=== PATIENT | female | born 1975 | race American Indian/Alaskan Native ===

== ENCOUNTER 2019-08-17 05:49 | Day surgery (SDC) | payer BC ==
[2019-08-17] MEDS ORDERED: GABAPENTIN 300 MG CAP PO NR (06:00)
[2019-08-17] MEDS ORDERED: ceFAZolin/Water 2 GM/20 ML 2 GM/20 ML SYRINGE IV NR (06:00)
[2019-08-17] MEDS ORDERED: LACTATED RINGERS 1,000 ML IV SCH (06:00)
[2019-08-17] MEDS ORDERED: MIDAZOLAM 2 MG/2 ML INJ IV NR (06:00)
[2019-08-17] MEDS ORDERED: SCOPOLAMINE TRANSDERMAL PATCH 72 HR TD NR (06:00)
[2019-08-17] MEDS ORDERED: MAGNESIUM OXIDE 400 MG TAB PO SCH (06:00)
[2019-08-17] MEDS ORDERED: CELECOXIB 200 MG CAP PO NR (06:00)
[2019-08-17] MEDS ORDERED: ONDANSETRON 4 MG/2 ML INJ IV PRN (06:59)
--- NOTE | 2019-08-17 07:02 | Anesthesia Consultation ---
Anesthesia Consult and Med Hx Date of service: 08/17/19 - Airway Anesthetic Teeth Evaluation: Good ROM Head & Neck: Adequate Mental/Hyoid Distance: Adequate Mallampati Class: Class I Intubation Access Assessment: Good - Pulmonary Exam CTA: Yes - Cardiac Exam Cardiac Exam: RRR - Pre-Operative Health Status ASA Pre-Surgery Classification: ASA2 Proposed Anesthetic Plan: General - Pulmonary Hx Smoking: No Hx Respiratory Symptoms: No Hx Sleep Apnea: No - Cardiovascular System Hx Hypertension: Yes Hx Heart Attack/AMI: No Hx Percutaneous Transluminal Coronary Angioplasty (PTCA): No - Central Nervous System CVA: No - Gastrointestinal Hx Gastroesophageal Reflux Disease: No - Endocrine Hx Renal Disease: No Hx Liver Disease: No Hx Insulin Dependent Diabetes: No Hx Non-Insulin Dependent Diabetes: No Hx Thyroid Disease: No - Other Systems Hx Alcohol Use: Yes (SOCIAL WINE) Hx Substance Use: No Hx Obesity: No - Additional Comments Anesthesia Medical History Comments: No hx anesthetic complications.
--- NOTE | 2019-08-17 07:03 | Anesthesia Day of Surgery ---
Anesthesia Day of Surgery - Day of Surgery Patient Examined: Yes Patient H&P Reviewed: Yes Patient is NPO: Yes
[2019-08-17] MEDS ORDERED: LIDOCAINE 1%/EPINEPHRINE 1:100,000 VIAL (20 ML) INFILTRATI ONE ×2 (07:28→08:43)
[2019-08-17] MEDS ORDERED: ONDANSETRON 4 MG/2 ML INJ ONE (07:33)
[2019-08-17] MEDS ORDERED: LIDOCAINE MPF (2%) 20 MG/1 ML VIAL 5 ML ONE (07:33)
[2019-08-17] MEDS ORDERED: dexAMETHasone 20 MG/5 ML VIAL ONE (07:33)
[2019-08-17] MEDS ORDERED: ROCURONIUM 50 MG/5 ML INJ IV ONE (07:33)
[2019-08-17] MEDS ORDERED: HYDROmorphone 1 MG/1 ML INJ ONE (07:34)
[2019-08-17] MEDS ORDERED: propofoL 200 MG/20 ML VIAL IV ONE (07:34)
[2019-08-17] MEDS ORDERED: EPINEPHrine 1 MG/10 ML SYRINGE ONE (07:35)
[2019-08-17] MEDS ORDERED: LIDOCAINE (1%) 10 MG/1 ML VIAL 20 ML MDV ONE (07:36)
[2019-08-17] MEDS ORDERED: SODIUM CHLORIDE 0.9% 1000 ML 1,000 ML ONE (07:38)
[2019-08-17] MEDS ORDERED: EPINEPHrine/PF 1 MG/1 ML INJ ONE (07:43)
[2019-08-17] MEDS ORDERED: SODIUM CHLORIDE 0.9% 1000 ML IV SOLN IJ ONE (08:39)
[2019-08-17] MEDS ORDERED: LIDOCAINE (1%) 10 MG/1 ML VIAL 20 ML MDV INFILTRATI ONE (08:42)
[2019-08-17] MEDS ORDERED: EPINEPHrine/PF 1 MG/1 ML INJ IV ONE (08:44)
[2019-08-17] MEDS ORDERED: LACTATED RINGERS 1,000 ML ONE ×2 (10:01→11:16)
[2019-08-17] MEDS ORDERED: ePHEDrine SULFATE 50 MG/1 ML INJ ONE (10:13)
[2019-08-17] MEDS: HYDROmorphone 1 MG/1 ML INJ IV PRN ×4 (12:05→13:06)
--- NOTE | 2019-08-17 12:07 | Operative Report ---
Operative Report Operative Report: Preoperative Diagnosis: Symptomatic bilateral macromastia Post Operative Diagnosis: Same Procedure: Bilateral breast reduction Surgeon: Dr. Rocío Pulliam Briar Wood Sorter: MARGA Chicas Anesthesia: General Specimens: Right and left breast tissue, excised EBL: 50cc Indications: This patient is a 43 year old AAF who presented with musculoskeletal complaints due to her large breasts. She was approved for breast reduction to alleviate her symptoms. The benefits and risks of surgery were discussed in detail with the patient who expressed her understanding. Informed consent was obtained. Procedure: After review of pertinent history and physical exam findings the patient was marked in preop holding and brought into the operating room and placed supine on the OR table. After induction of adequate general anesthesia the patient's chest was prepped and draped in the usual sterile surgical fa shion. To begin, odom were refreshed and measurements double checked and we reduced the right breast as follows: A 9cm inferior pedicle was outlined and de-epithelialized save the nipple and areola complex, which was measured out using a 4.5cm diameter and left completely attached to the inferior pedicle. After this, following a Ortega pattern, skin incisions were made to elevate breast flaps superiorly and excise excess tissue on the medial and lateral aspect of the pedicle. Hemostasis was maintained with electrocautery. Saline solution was then used to irrigate the breast tissue and, satisfied with hemostasis and volume, we began to a 3-layered closure using 2-0 Monocryl and 3-0 Monoderm sutures. The same procedure was performed on the left side, with tissue re- arrangement and excision based on an inferior pedicle being performed to preserve the nipple areolar complex and as much breast tissue as possible for symmetry. Tissue excised: 4600mg right breast; 4400g on the left. Once all incisions were closed, they were sealed with Dermabond and dressed with Telfa and tegaderm dressings. This was followed by placement of a surgical bra. The patient was then awakened from general anesthesia and transferred to PACU in stable condition. There were no complications. All sponge needle and instrument counts were correct at the end of the case.
[2019-08-17 13:19] VITALS: BP 123/74
--- NOTE | 2019-08-17 14:37 | Post Anesthesia Evaluation ---
- Post Anesthesia Evaluation Patient Participated: Yes Airway Patent: Yes Stable Respiratory Function: Yes Nausea/Vomiting: No Temp > 96.8F: Yes Pain Manageable: Yes Adequeate Hydration: Yes Anesthesia Complications: No
== END 2019-08-17 13:46 | disposition home or self-care (01) ==
LOC: OR 05:49
PROVIDERS: ATTEND Plastic Surgery
DX: N62 Hypertrophy of breast (principal); I10 Essential (primary) hypertension; Z90.710 Acquired absence of both cervix and uterus; Z90.721 Acquired absence of ovaries, unilateral; Z87.442 Personal history of urinary calculi; Z72.89 Other problems related to lifestyle; Z98.890 Other specified postprocedural states; Z80.3 Family history of malignant neoplasm of breast; Z79.899 Other long term (current) drug therapy; Z80.41 Family history of malignant neoplasm of ovary; Z80.42 Family history of malignant neoplasm of prostate
CPT/HCPCS: 19318; 88305; J0171; J0690; J1100; J1170; J2250; J2405; J2704; J7030; J7120